=== PATIENT | female | born 1945 | race American Indian/Alaskan Native ===

== ENCOUNTER 2017-09-10 07:48 | Outpatient (CLI) | payer MEDICARE ==
--- NOTE | 2017-09-11 09:15 | PET Report ---
PET/CT:09/10/17 07:48:00 CLINICAL: Tonsillar cancer restaging. RADIOPHARMACEUTICAL: 14.623mCi F18-FDG. COMPARISON: 12/15/13 PET/CT TECHNIQUE- Following intravenous injection of F-18 FDG and an approximately 60 minute uptake period, CT and PET images from the mid skull to the upper thighs were acquired with the patient in the fasted state. No contrast was administered. The CT protocol used for this PET CT study is designed for attenuation correction and anatomic localization of PET abnormalities. This research study assistant CT is not desired to produce and cannot replace, [id number] diagnostic CT scans with specific imaging protocols for different body parts and indications. Plasma glucose at the time of this test: 89g/dl. The standardized uptake values (SUV) are normalized to patient body weight and indicate the highest activity concentration (SUV max) in a given disease site. FINDINGS: Brain--Physiologic FDG uptake in the visualized regions of the brain. Neck--Physiologic FDG uptake in mucosal structures. No mass or lymphadenopathy. An enlarged multinodular left thyroid lobe demonstrates FDG uptake equal to background and is not significantly changed compared to the prior exam. There is displacement of the trachea to the right. Chest--Physiologic FDG uptake in mediastinal blood pool and myocardium. Lungs--No abnormal uptake. No pulmonary nodule or mass. Pleura/pericardium--No abnormal uptake. Thoracic nodes--No abnormal uptake. Hepatobiliary--No abnormal uptake. Liver background SUV mean, as a reference for comparing FDG studies, is 3.6 compared to 3.5 on the last exam. No liver mass. Spleen--No abnormal uptake. Pancreas--No abnormal uptake. Adrenal Glands--No abnormal uptake. Kidneys/Ureters/Bladder--No abnormal uptake. The kidneys are relatively small with too numerous to count small bilateral renal cysts. Multiple bilateral high density cysts. Abdominopelvic Nodes--No abnormal uptake. Bowel/Peritoneum/Mesentery--No abnormal uptake. Physiologic throughout the colon. Pelvic organs--No abnormal uptake. Bones/Soft Tissues--No abnormal uptake. No suspicious bone lesions. IMPRESSION- 1. Negative study with no evidence of disease recurrence or metastasis. 2. Stable left benign multinodular goiter. 3. Numerous bilateral small renal cysts with multiple bilateral hemorrhagic cysts.
== END 2017-09-10 07:49 | disposition home or self-care (01) ==
LOC: PET 07:48
PROVIDERS: ATTEND Internal Medicine Hematology & Oncology
DX: C09.9 Malignant neoplasm of tonsil, unspecified (principal); E66.3 Overweight; D64.9 Anemia, unspecified; M19.041 Primary osteoarthritis, right hand; E04.2 Nontoxic multinodular goiter; N28.1 Cyst of kidney, acquired; I10 Essential (primary) hypertension; J35.1 Hypertrophy of tonsils; J35.01 Chronic tonsillitis; E11.9 Type 2 diabetes mellitus without complications; E78.5 Hyperlipidemia, unspecified; E78.00 Pure hypercholesterolemia, unspecified
CPT/HCPCS: 78815; 82962; A9552